=== PATIENT | female | born 1955 | race Caucasian/White ===

== ENCOUNTER 2020-12-28 12:46 | Outpatient (REF) | payer MEDICARE, SELFPAY ==
--- NOTE | 2020-12-29 12:22 | MHC.AU.MED ---
Medical Clearance for Hearing Instrumentation Date: 12/29/20 Patient Name: Dianna Hernandez Date of : 1955 Primary Care Provider: Referring Provider: dArian Gautam MD We have seen your patient on 12/29/20 and have determined that they are a candidate for amplification (See accompanying report). Specifically, they would benefit from: Hearing aid use in both ears There is a statute that addresses Medical Evaluation Requirements prior to fitting a patient with a hearing aid. According to [place] statute 265 CMR:6.03(1), (a) General. Except as provided in 265 CMR 6.03(1)(b), a supervisor melt house shall not sell a hearing aid unless the prospective user has presented to the supervisor melt house a written statement signed by a licensed physician that states that the patient's hearing loss has been medically evaluated and the patient may be considered a candidate for a hearing aid. The medical evaluation must have taken place within the preceding six months. Please note: Due to the [place] Statute referenced above, we cannot accept a signature other than that of a licensed physician. SURGERY TEACHER and PA signatures cannot be accepted. I am in agreement with the above recommendation. There is no medical contraindication for hearing instrumentation. Physician Signature Date Physician Name (Printed)
--- NOTE | 2020-12-30 09:50 | MHC.AU.P13 ---
Adult Audiological Evaluation Date of Visit: 12/28/20 Outpatient Pharmacy Manager Used: Not Applicable Reason for Appointment: Audiologic re-evaluation due to perceived change in hearing ability and significant increase in balance problems over the past year. Also, Dianna lost her hearing aids received in 2014 and needs new hearing aids. Previous Hearing Test Results: 06/10/2019 [facility] Bilateral mild sloping to severe sensorineural hearing loss. Ear History: Bothersome Tinnitus/Ringing/Noises in Ears: Both Ears Medical History: Medical History: Diabetes Medical History: Significant balance problems, Arthritis Medication List: Not available for review Hearing Instrument History- Right Ear: Molding Press Operator: Lost 2014 Oticon BTE aid Hearing Instrument History- Left Ear: Molding Press Operator: Lost 2014 Oticon aid Otoscopy: Right Ear: Occluding cerumen removed prior to test Left Ear: Unremarkable Tympanometry: Tympanometry performed due to: To assess integrity of the middle ear system Right Ear: Normal Middle Ear System (Type A) Left Ear: Normal Middle Ear System (Type A) Hearing Evaluation: Transducer(s) Used: Insert Earphones Bone Conduction Method: Conventional Audiometry Stimuli Used: Pure Tones Right Ear: Description of Hearing: Moderate to severe mixed hearing loss Left Ear: Description of Hearing: Moderate to severe mixed hearing loss Thresholds at 2000, 3000, and 8000 Hz are 15 dB poorer than the right ear Speech Recognition Threshold (SRT): Method Used: Monitored Live Voice Stimuli Used: Right Ear: 40 dB HL Left Ear: 40 dB HL Word Discrimination: Method: Recorded Lists Word Lists Used: NU-6 Right Ear: 92% at 80 dB HL Left Ear: 92% at 80 dB HL Comparison: Compared to the most recent evaluation: Thresholds have decreased bilaterally 10-15 dB Recommendations: Audiological re-evaluation in one year. Trial with amplification is recommended. Medical clearance from a physician is required before fitting. Hearing aid(s) will be ordered after approval is received. Hearing Aid Fitting will be scheduled when all materials arrive. Advise medical consultation with an Finished Stock Inspector for the increased balance problems Diagnosis: Primary Diagnosis: H90.6 Mixed Hearing Loss, Bilateral Services Performed: Comprehensive Audiological Evaluation (CPT 49851) Tympanometry (CPT 47062) Signature: Provider: Daphne Sorenson, [facility]
--- NOTE | 2020-12-30 09:58 | MHC.AU.P13 ---
Hearing Aid Evaluation- Binaural Date of Visit: 12/28/20 Heel Seat Pounder Used: Not Applicable Description of Hearing: Asymmetric moderate to severe mixed hearing loss with the left ear being poorer than right. Current Hearing Instrument Information: 2014 Oticon Nera 2 BTE hearing aids received from [employer] Additional Information: Dianna lost both hearing aids approximately one year ago. Due to the significant hearing loss and difficulties understanding speech, as well as her difficulty with manipulating the previous BTE with earmold style and batteries, binaural rechargeable ITE hearing aids are recommended as part of the remediation process Hearing Instrument Selection: Right Ear: Video Machines Mechanic: 2014 aid Model: Roby 1600 ITE-R Battery Size: Rechargeable Color: Stanton Left Ear: Video Machines Mechanic: 2014 aid Model: Roby 1600 ITE-R Battery Size: Rechargeable Color: Stanton Plan: Plan of Care for Hearing Instrument Fitting: Patient wishes to purchase hearing aids as prescribed Action Taken/Action Needed: Earmold Impressions Taken Prior authorization to be requested Medical Clearance to be requested from PCP/ENT Hearing Fitting to be scheduled when materials arrive Comments: Diagnosis Code(s): Primary Diagnosis: H90.6 Mixed Hearing Loss, Bilateral Services Performed: Hearing Aid Evaluation Type: HAE B: Binaural 3rd Constitution Party Ear Impression (Quantity): 2 Signature: Provider: Daphne Sorenson, CCC-A
== END 2020-12-28 12:47 | disposition home or self-care (01) ==
LOC: HO.SH 12:46
PROVIDERS: Visit Provider Family Medicine
DX: Z46.1 Encounter for fitting and adjustment of hearing aid (principal); H90.6 Mixed conductive and sensorineural hearing loss, bilateral
CPT/HCPCS: 92557; 92567; 92591; V5275

== ENCOUNTER 2021-04-29 14:27 | Outpatient (REF) | payer OTHER, SELFPAY | END 2021-04-29 14:28 | disposition home or self-care (01) | LOC: HO.HAP 14:27 | PROVIDERS: Visit Provider Family Medicine | DX: Z46.1 Encounter for fitting and adjustment of hearing aid (principal); H90.3 Sensorineural hearing loss, bilateral | CPT/HCPCS: 92595; V5011; V5020; V5160; V5260 ==

== ENCOUNTER 2021-05-17 12:05 | Outpatient (REF) | payer OTHER, SELFPAY ==
--- NOTE | 2021-05-17 12:52 | MHC.AU.HFU ---
Hearing Instrument Follow-Up- Binaural Date of Visit: 05/17/21 Right Ear: Treatment Coordinator:Vanessa Model: Roby 1600 ITE-R Serial Number: [id number] Repair Warranty: 04/10/2024 Battery Size: Rechargeable Type of Wax Guard: HearClear Dispensed By: [facility] Date of Fittin04/29/2021 Left Ear: Treatment Coordinator:Vanessa Model: Roby 1600 ITE-R Serial Number: [id number] Repair Warranty: 04/10/2024 Battery Size: Rechargeable Type of Wax Guard: HearClear Dispensed By: [facility] Date of Fittin04/29/2021 Follow-Up Summary: Patient reports sound quality of the aids is good; however, both aids are causing significant discomfort as the canal portions are too big. She reports the aids do move out of both ears frequently and needs to push them in. Spoke with Claudia at [facility] to discuss options of either tapering canals of current aids and adding a helix lock OR change to ITC with canal lock. Patient chose the ITC with canal lock and tapering canals. RFC the [employer] and faxed order for the ITC with canal lock using scans on file. Recommendations (Other): Schedule HAF when new aids in. Signature: Provider: Daphne Sorenson, CCC-A
== END 2021-05-17 12:06 | disposition home or self-care (01) ==
LOC: HO.HAP 12:05
PROVIDERS: Visit Provider Family Medicine
DX: Z13.89 Encounter for screening for other disorder (principal)

== ENCOUNTER 2022-01-21 12:12 | Outpatient (REF) | payer SELFPAY ==
--- NOTE | 2022-01-21 13:40 | MHC.AU.HFA ---
Hearing Instrument Fitting- Adult- Binaural Date of Visit: 01/21/22 Hearing Instruments Dispensed: Right Ear: Steam And Power Superintendent: [employer] Model: Roby 1600 ITC-R Serial Number: [id number] Repair Warranty: 01/21/2025 Per Ihsan Vanessa Spinner Concrete Pipe Rep Loss and Damage Warranty: 01/21/2025 Battery Size: Rechargeable Type of Wax Guard: HearClear Left Ear: Steam And Power Superintendent: [employer] Model: Roby 1600 ITC-R Serial Number: [id number] Repair Warranty: 01/21/2025 Per Ihsan Vanessa Spinner Concrete Pipe Rep Loss and Damage Warranty: 01/21/2025 Battery Size: Rechargeable Type of Wax Guard: HearClear Summary of Fitting: Fit the ITC-R aids with patient reporting improved fit. Ran feedback test and Real Ear measurements making adjustments to better meet target. Frequency Lowering activated. Aids all automatic. Practiced insertion and removal of aids, meat cutting teacher use, changing wax guards. Patient doing well while in office. Patient does not have a push button on aids. Discussed cell phone may be able to connect to aids but have to answer by the phone, not the aids. Patient did not want to connect aids to [employer] jorge luis at this time. Reviewed manual in case she wants to in future. Aids were billed to [facility] in April 2021 when ITE-R aids fit. Recommendations:Recommendations: Please call our clinic with any questions or concerns. Recommendations (Other): Patient advised to contact [facility] for new hearing aid provider. Diagnosis Code(s):Primary Diagnosis: H90.6 Mixed Hearing Loss, Bilateral Services Performed:BANG Non-Quantity Charges: Signature:Provider: Daphne Sorenson, [facility]
== END 2022-01-21 12:13 | disposition home or self-care (01) ==
LOC: HO.HAP 12:12
PROVIDERS: Visit Provider Family Medicine
DX: Z13.89 Encounter for screening for other disorder (principal)